=== PATIENT | female | born 1970 | race Two or more races ===

== ENCOUNTER 2022-05-13 11:40 | Outpatient (CLI) | payer OTHER | END 2022-05-13 23:59 | disposition home or self-care (01) | LOC: LAB 11:40 | PROVIDERS: ATTEND Specialist | DX: Z01.812 Encounter for preprocedural laboratory examination (principal); Z20.822 Contact with and (suspected) exposure to COVID-19 | CPT/HCPCS: U0003; C9803 ==

== ENCOUNTER 2022-05-17 07:02 | Day surgery (SDC) | payer OTHER ==
[2022-05-17] VITALS (8 sets, daily range): BP systolic 105–148; BP diastolic 68–94
[2022-05-17] MEDS ORDERED: MIDAZOLAM HCL 2 MG/2ML VIAL ONE (08:25)
[2022-05-17] MEDS ORDERED: HYDROMORPHONE INJ 2 MG/ML DISP.SYRIN ONE (08:26)
[2022-05-17] MEDS ORDERED: FENTANYL PF 250MCG/5ML AMPUL ONE (08:26)
[2022-05-17] MEDS ORDERED: FAMOTIDINE/PF INJ 20 MG/2 ML VIAL IV ONE (08:27)
[2022-05-17] MEDS ORDERED: methylPREDNISolone ACETATE 80 MG/ML VIAL ONE (08:36)
[2022-05-17] MEDS ORDERED: BUPIVACAINE 0.5 % PF 150 MG/30 ML VIAL ONE (08:36)
--- NOTE | 2022-05-17 09:10 | NUR ---
RN ADMITTING NOTES PATIENT ARRIVED TO UNIT 0715, ACCOMPANIED BY ADMITTING STAFF. AMBULATORY AND A/Ox4, THAI SPEAKING. BROUGHT TO ROOM, 309-2, ORIENTED TO STAFF AND UNIT. COLLECTED URINE FOR TEST, PATIENT VOIDED 0720. IV ACCESS STARTED ON L AC #20, INTACT AND PATENT. [id number] ARRIVED TO UNIT AND PROCEDURE EXPLAINED. BELONGINGS COLLECTED AND STORED IN ROOM. CONSENTS SIGNED. V/S TAKEN AND STABLE. PATIENT NPO SINCE MIDNIGHT THIS MORNING. DR. NEGRON (ANESTHESIOLOGIST). ARRIVED TO UNIT AND CAME TO SPEAK TO THE PATIENT REGARDING THE PROCEDURE. TRANSPORT ARRIVED FOR PATIENT @0905, AND PATIENT LEFT UNIT @0907.
--- NOTE | 2022-05-17 13:01 | NUR ---
RN NOTES PATIENT RETURNED TO UNIT ACCOMPANIED BY NURSE TO AND 1 OR TRANSPORT @1250. PATIENT IS A/O x4, LETHARGIC. HAS DRESSING ON L KNEE, MORRIS BANDAGE IN PLACE. NO S/S OF DRAINAGE. V/S STABLE, ON ROOM AIR NO S/S OF RESPIRATORY DISTRESS. WILL CONTINUE TO MONITOR.
--- NOTE | 2022-05-17 17:01 | NUR ---
[facility] CLERK NOTES PATIENT DISCHARGED HOME IN STABLE CONDITION. A/O x4. V/S TAKEN, STABLE AND RECORDED. ON ROOM AIR, NO S/S OF RESPIRATORY DISTRESS. PATIENT AND FAMILY GIVEN DISCHARGE INSTRUCTIONS AND HEALTH EDUCATION, VERBALIZED UNDERSTANDING. ALL BELONGINGS CONFIRMED WITH PATIENT. IV ACCESS REMOVED ON L AC G#20, PRESSURE DRESSING APPLIED, NO S/S OF BLEEDING NOTED. ID BAND REMOVED. PATIENT LEFT UNIT VIA WHEELCHAIR @1650 ACCOMPANIED BY EDENILSON LOPEZ AND PT'S AND SON. CHARGE NURSE AND MD AWARE OF DISCHARGE.
== END 2022-05-17 16:00 | disposition home or self-care (01) ==
LOC: DS 07:02 → MED 07:03 → UNDOADMIN 07:03 → DS 16:00 → UNDODISIN 16:50
PROVIDERS: ATTEND Specialist
DX: S83.232A Complex tear of medial meniscus, current injury, left knee, initial encounter (principal); S83.282A Other tear of lateral meniscus, current injury, left knee, initial encounter; X58.XXXA Exposure to other specified factors, initial encounter; Y93.89 Activity, other specified; Y92.89 Other specified places as the place of occurrence of the external cause; Y99.8 Other external cause status; I10 Essential (primary) hypertension; Z98.890 Other specified postprocedural states; Z79.899 Other long term (current) drug therapy
CPT/HCPCS: 29880; 84703; J0690; J3490 ×3; J1040; J2704; J1170; J2765; J2405; J7030; J2250; A6253; A4217; J3010; G0378

== ENCOUNTER 2022-11-29 10:31 | Outpatient (CLI) | payer OTHER | END 2022-11-29 23:59 | disposition home or self-care (01) | LOC: LAB 10:31 | PROVIDERS: ATTEND Specialist | DX: Z01.812 Encounter for preprocedural laboratory examination (principal); Z20.822 Contact with and (suspected) exposure to COVID-19 | CPT/HCPCS: U0003; C9803 ==

== ENCOUNTER 2022-12-04 07:00 | Day surgery (SDC) | payer OTHER ==
[~2022-12-04 07:00] MED LIST: ANESTHESIA TRAY IN PYXIS 1 EA TRAY MC ONE
[2022-12-04] MEDS ORDERED: BUPIVACAINE 0.5 % PF 150 MG/30 ML VIAL ONE ×2 (10:39→11:10)
[2022-12-04] MEDS ORDERED: EPINEPHRINE (1:1000) 1 MG/ML AMPUL ONE (10:39)
[2022-12-04] MEDS ORDERED: methylPREDNISolone ACETATE 80 MG/ML VIAL ONE (10:39)
[2022-12-04] MEDS ORDERED: MIDAZOLAM HCL 2 MG/2ML VIAL ONE (11:04)
[2022-12-04] MEDS ORDERED: FENTANYL PF 100MCG/2ML AMPUL ONE (11:04)
== END 2022-12-04 14:15 | disposition home or self-care (01) ==
LOC: DS 07:00
PROVIDERS: ATTEND Specialist
DX: M75.41 Impingement syndrome of right shoulder (principal); I10 Essential (primary) hypertension; Z98.890 Other specified postprocedural states; Z79.899 Other long term (current) drug therapy
CPT/HCPCS: 29823; 29826; 84703; J0690; J3490 ×2; J1040; J1100; J2704; J0171; J3010; J2405; J7030; J2250; A6253; A4217; A4565